=== PATIENT | male | born 2000 | race Two or more races ===

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

== ENCOUNTER 2021-01-04 10:49 | Emergency (ER) | payer MEDICAID, OTHER ==
[~2021-01-04] VITALS: Ht 170.2 cm; Wt 95.3 kg
[2021-01-04 10:49] VITALS: BP 134/86
== END 2021-01-04 13:42 | disposition left against medical advice (07) ==
LOC: ER 10:49 → EDBD 10:49 → ER 13:42
DX: M54.2 Cervicalgia (principal); M54.50 Low back pain, unspecified; Z53.21 Procedure and treatment not carried out due to patient leaving prior to being seen by health care provider; V49.49XA Driver injured in collision with other motor vehicles in traffic accident, initial encounter; Y93.89 Activity, other specified; Y92.488 Other paved roadways as the place of occurrence of the external cause; Y99.8 Other external cause status